=== PATIENT | female | born 1995 | race African-American/Black ===

== ENCOUNTER 2018-05-02 00:17 | Emergency (ER) | payer SELFPAY ==
[~2018-05-02] VITALS: Ht 165.1 cm; Wt 97.5 kg
== END 2018-05-02 01:20 | disposition home or self-care (01) ==
LOC: FSED 00:17
DX: R50.9 Fever, unspecified (principal); R05 Cough; J03.01 Acute recurrent streptococcal tonsillitis
CPT/HCPCS: 99283